=== PATIENT | female | born 1970 | race Asian ===

== ENCOUNTER 2023-07-21 16:30 | Outpatient (CLI) | payer BC | END 2023-07-21 16:31 | disposition home or self-care (01) | LOC: CSHRAD 16:30 | PROVIDERS: ATTEND Physical Medicine & Rehabilitation | DX: Z11.1 Encounter for screening for respiratory tuberculosis (principal) | CPT/HCPCS: 71045 ==

== ENCOUNTER 2025-07-26 08:13 | Outpatient (CLI) | payer BC | END 2025-07-26 08:14 | disposition home or self-care (01) | LOC: CSHMAMMO 08:13 | PROVIDERS: ATTEND Family Medicine | DX: N64.89 Other specified disorders of breast (principal) | CPT/HCPCS: G0279 ==